=== PATIENT | male | born 1935 | race Caucasian/White ===

== ENCOUNTER → 2016-08-24 | Outpatient (CLI) | payer OTHER ==
[~2016-08-24] MED LIST: ALLO300T; ASPI81TA63; CRES5TAB; LUTEIN; OSTEOBIFLEX; THERGRAN; VITAMIN D50000 UNT; ZETI10TA
[2016-08-24 13:31] LABS: MEAN CORPUSCULAR HEMOGLOBIN 30.3 pg (27.0-33.0); MEAN CORPUSCULAR HGB CONC 33.2 g/dl (32.0-36.5); MEAN CORPUSCULAR VOLUME 91.1 fl (80.0-96.0); RED CELL DISTRIBUTION WIDTH 14.1 % (11.5-14.5)
[2016-08-24 13:50] LABS: ALBUMIN 3.4 GM/DL (3.2-5.2); ALBUMIN/GLOBULIN RATIO 1.26 (1.00-1.93); ALKALINE PHOSPHATASE 62 U/L (45-117); ALT/SGPT 27 U/L (12-78); ANION GAP 6 MEQ/L (8-16); AST/SGOT 15 U/L (15-37); BILIRUBIN,DIRECT 0.2 MG/DL (0.0-0.2); BILIRUBIN,TOTAL 0.7 MG/DL (0.2-1.0); BLOOD UREA NITROGEN 23 MG/DL (7-18); CALCIUM LEVEL 9.2 MG/DL (8.8-10.2); CARBON DIOXIDE LEVEL 30 MEQ/L (21-32); CHLORIDE LEVEL 109 MEQ/L (98-107); CHOLESTEROL LEVEL 146 MG/DL (<200); CREATININE FOR GFR 0.92 MG/DL (0.70-1.30); FERRITIN 30 NG/ML (26-388); GLOMERULAR FILTRATION RATE > 60.0 (>35); GLUCOSE, FASTING 102 MG/DL (83-110); PERCENT SATURATION 22.1 % (19.7-37.4); SODIUM LEVEL 145 MEQ/L (136-145); TOTAL IRON BINDING CAPACITY 317 UG/DL (250-450); TOTAL PROTEIN 6.1 GM/DL (6.4-8.2); TRIGLYCERIDES LEVEL 66 MG/DL (<150); URIC ACID 2.4 MG/DL (3.5-7.2)
[2016-08-24 13:55] LABS: FOLATE > 24.0 NG/ML (>5.4)
== END ==
LOC: M SMT 08:22
PROVIDERS: ATTEND Family Medicine
DX: E87.6 Hypokalemia (principal); E55.9 Vitamin D deficiency, unspecified; E61.1 Iron deficiency; E78.4 Other hyperlipidemia; M10.9 Gout, unspecified; Z12.5 Encounter for screening for malignant neoplasm of prostate
CPT/HCPCS: 36415; 80048; 80061; 80076; 82306; 82550; 82728; 82746; 83550; 84443; 84550; 85027; G0103

== ENCOUNTER → 2016-11-30 | Outpatient (CLI) | payer OTHER ==
[2016-11-30 14:38] LABS: ANION GAP 8 MEQ/L (8-16); BLOOD UREA NITROGEN 17 MG/DL (7-18); CALCIUM LEVEL 8.9 MG/DL (8.8-10.2); CARBON DIOXIDE LEVEL 27 MEQ/L (21-32); CHLORIDE LEVEL 107 MEQ/L (98-107); CREATININE FOR GFR 1.05 MG/DL (0.70-1.30); GLOMERULAR FILTRATION RATE > 60.0 (>35); GLUCOSE, FASTING 95 MG/DL (83-110); POTASSIUM SERUM 4.6 MEQ/L (3.5-5.1); SODIUM LEVEL 142 MEQ/L (136-145)
== END ==
LOC: M SMT 08:21
PROVIDERS: ATTEND Family Medicine
DX: E87.5 Hyperkalemia (principal)

== ENCOUNTER → 2017-03-06 | Outpatient (CLI) | payer OTHER ==
[2017-03-06 11:11] LABS: MEAN CORPUSCULAR HEMOGLOBIN 31.1 pg (27.0-33.0); MEAN CORPUSCULAR HGB CONC 33.8 g/dl (32.0-36.5); MEAN CORPUSCULAR VOLUME 91.9 fl (80.0-96.0); RED CELL DISTRIBUTION WIDTH 13.6 % (11.5-14.5); WHITE BLOOD COUNT 4.6 K/mm3 (4.0-10.0)
[2017-03-06 11:22] LABS: ALBUMIN 3.2 GM/DL (3.2-5.2); ALBUMIN/GLOBULIN RATIO 1.03 (1.00-1.93); ALKALINE PHOSPHATASE 53 U/L (45-117); ALT/SGPT 23 U/L (12-78); ANION GAP 8 MEQ/L (8-16); AST/SGOT 10 U/L (15-37); BILIRUBIN,TOTAL 0.7 MG/DL (0.2-1.0); BLOOD UREA NITROGEN 20 MG/DL (7-18); CALCIUM LEVEL 8.5 MG/DL (8.8-10.2); CARBON DIOXIDE LEVEL 27 MEQ/L (21-32); CHLORIDE LEVEL 108 MEQ/L (98-107); CHOLESTEROL LEVEL 166 MG/DL (<200); GLOMERULAR FILTRATION RATE > 60.0 (>35); GLUCOSE, FASTING 93 MG/DL (83-110); MAGNESIUM LEVEL 2.2 MG/DL (1.8-2.4); POTASSIUM SERUM 4.9 MEQ/L (3.5-5.1); SODIUM LEVEL 143 MEQ/L (136-145); TOTAL PROTEIN 6.3 GM/DL (6.4-8.2); TRIGLYCERIDES LEVEL 103 MG/DL (<150); URIC ACID 3.2 MG/DL (3.5-7.2)
== END ==
LOC: M SMT 08:06
PROVIDERS: ATTEND Family Medicine
DX: E78.2 Mixed hyperlipidemia (principal); R60.9 Edema, unspecified; M10.9 Gout, unspecified; Z12.5 Encounter for screening for malignant neoplasm of prostate
CPT/HCPCS: 36415; 80053; 80061; 83735; 84443; 84550; 85027; G0103

== ENCOUNTER → 2017-04-02 | Outpatient (CLI) | payer OTHER ==
[2017-04-02 13:30] LABS: MEAN CORPUSCULAR HEMOGLOBIN 30.4 pg (27.0-33.0); MEAN CORPUSCULAR HGB CONC 32.9 g/dl (32.0-36.5); MEAN CORPUSCULAR VOLUME 92.5 fl (80.0-96.0); RED CELL DISTRIBUTION WIDTH 13.6 % (11.5-14.5); WHITE BLOOD COUNT 4.3 10^3/uL (4.0-10.0)
[2017-04-02 14:00] LABS: PERCENT SATURATION 34.7 % (19.7-50.0)
== END ==
LOC: M SMT 07:54
PROVIDERS: ATTEND Family Medicine
DX: D64.9 Anemia, unspecified (principal); M10.9 Gout, unspecified; K64.4 Residual hemorrhoidal skin tags; Z12.11 Encounter for screening for malignant neoplasm of colon

== ENCOUNTER → 2017-11-09 | Outpatient (CLI) | payer OTHER ==
[2017-11-09 18:02] LABS: ANION GAP 10 MEQ/L (8-16); BLOOD UREA NITROGEN 31 MG/DL (7-18); CALCIUM LEVEL 9.1 MG/DL (8.8-10.2); CARBON DIOXIDE LEVEL 27 MEQ/L (21-32); CHLORIDE LEVEL 107 MEQ/L (98-107); GLOMERULAR FILTRATION RATE > 60.0 (>35); GLUCOSE, FASTING 93 MG/DL (70-100); POTASSIUM SERUM 4.8 MEQ/L (3.5-5.1); SODIUM LEVEL 144 MEQ/L (136-145)
== END ==
LOC: M SMT 15:36
DX: E78.1 Pure hyperglyceridemia (principal)
CPT/HCPCS: 80048

== ENCOUNTER → 2018-05-30 | Outpatient (CLI) | payer OTHER ==
[2018-05-30 14:00] LABS: HEMATOCRIT 40.6 % (42.0-52.0); HEMOGLOBIN 13.6 g/dl (13.5-17.5); MEAN CORPUSCULAR HEMOGLOBIN 30.6 pg (27.0-33.0); MEAN CORPUSCULAR HGB CONC 33.5 g/dl (32.0-36.5); MEAN CORPUSCULAR VOLUME 91.2 fl (80.0-96.0); PLATELET COUNT, AUTOMATED 148 10^3/uL (150-450); RED BLOOD COUNT 4.45 10^6/uL (4.30-6.10); RED CELL DISTRIBUTION WIDTH 13.7 % (11.5-14.5); WHITE BLOOD COUNT 4.7 10^3/uL (4.0-10.0)
[2018-05-30 14:55] LABS: ALBUMIN 3.1 GM/DL (3.2-5.2); ALBUMIN/GLOBULIN RATIO 0.97 (1.00-1.93); ALKALINE PHOSPHATASE 68 U/L (45-117); ALT/SGPT 22 U/L (12-78); ANION GAP 9 MEQ/L (8-16); AST/SGOT 20 U/L (7-37); BILIRUBIN,TOTAL 0.5 MG/DL (0.2-1.0); BLOOD UREA NITROGEN 19 MG/DL (7-18); CALCIUM LEVEL 8.2 MG/DL (8.8-10.2); CARBON DIOXIDE LEVEL 24 MEQ/L (21-32); CHLORIDE LEVEL 110 MEQ/L (98-107); CHOLESTEROL LEVEL 194 MG/DL (<200); CHOLESTEROL RISK RATIO 5.705 (<5); CREATININE FOR GFR 1.02 MG/DL (0.70-1.30); GLOMERULAR FILTRATION RATE > 60.0 (>35); GLUCOSE, FASTING 95 MG/DL (70-100); HDL CHOLESTEROL 34 MG/DL (>40); LDL CHOLESTEROL 127 MG/DL (<100); MAGNESIUM LEVEL 2.1 MG/DL (1.8-2.4); NON-HDL-C 160 MG/DL; NT-PRO BNP 59 PG/ML (<450); POTASSIUM SERUM 4.7 MEQ/L (3.5-5.1); SODIUM LEVEL 143 MEQ/L (136-145); TOTAL PROTEIN 6.3 GM/DL (6.4-8.2); TRIGLYCERIDES LEVEL 165 MG/DL (<150)
== END ==
LOC: M SMT 10:30
DX: M10.9 Gout, unspecified (principal); D64.9 Anemia, unspecified; I10 Essential (primary) hypertension; R60.9 Edema, unspecified
CPT/HCPCS: 83735

== ENCOUNTER → 2018-08-28 | Outpatient (CLI) | payer MEDICARE ==
[2018-08-28 10:24] LABS: ALBUMIN 3.4 GM/DL (3.2-5.2); BILIRUBIN,DIRECT 0.2 MG/DL (0.0-0.2); BILIRUBIN,TOTAL 0.8 MG/DL (0.2-1.0); CHOLESTEROL RISK RATIO 5.044 (<5); TOTAL PROTEIN 6.6 GM/DL (6.4-8.2)
== END ==
LOC: M SMT 08:00
PROVIDERS: ATTEND Family Medicine
DX: E78.2 Mixed hyperlipidemia (principal)

== ENCOUNTER → 2019-02-17 | Outpatient (CLI) | payer MEDICARE ==
[2019-02-17 14:09] LABS: ALBUMIN 3.1 GM/DL (3.2-5.2); BILIRUBIN,DIRECT 0.1 MG/DL (0.0-0.2); BILIRUBIN,TOTAL 0.7 MG/DL (0.2-1.0); CALCIUM LEVEL 8.9 MG/DL (8.8-10.2); CHOLESTEROL RISK RATIO 5.414 (<5); TOTAL PROTEIN 6.3 GM/DL (6.4-8.2); URIC ACID 3.2 MG/DL (3.5-7.2)
[2019-02-17 14:15] LABS: TOTAL 25(OH) VITAMIN D 42.9 NG/ML (30.0-100.0)
== END ==
LOC: M SMT 09:16
PROVIDERS: ATTEND Family Medicine
DX: E78.2 Mixed hyperlipidemia (principal); M10.9 Gout, unspecified; M81.0 Age-related osteoporosis without current pathological fracture

== ENCOUNTER → 2019-05-19 | Outpatient (CLI) | payer MEDICARE ==
[2019-05-19 14:22] LABS: ALBUMIN 3.1 GM/DL (3.2-5.2); ALT/SGPT 21 U/L (12-78); BILIRUBIN,DIRECT 0.1 MG/DL (0.0-0.2); BILIRUBIN,TOTAL 0.8 MG/DL (0.2-1.0); BLOOD UREA NITROGEN 19 MG/DL (7-18); CALCIUM LEVEL 8.6 MG/DL (8.8-10.2); CARBON DIOXIDE LEVEL 29 MEQ/L (21-32); CHLORIDE LEVEL 104 MEQ/L (98-107); CHOLESTEROL LEVEL 203 MG/DL (<200); CHOLESTEROL RISK RATIO 4.511 (<5); CPK CREATINE PHOSPHOKINASE 40 U/L (39-308); CREATININE FOR GFR 1.08 MG/DL (0.70-1.30); GLOMERULAR FILTRATION RATE > 60.0 (>35); GLUCOSE, FASTING 105 MG/DL (70-100); HDL CHOLESTEROL 45 MG/DL (>40); LDL CHOLESTEROL 136 MG/DL (<100); NON-HDL-C 158 MG/DL; NT-PRO BNP 53 PG/ML (<450); SODIUM LEVEL 140 MEQ/L (136-145); TOTAL PROTEIN 6.3 GM/DL (6.4-8.2); TRIGLYCERIDES LEVEL 111 MG/DL (<150); URIC ACID 2.6 MG/DL (3.5-7.2)
== END ==
LOC: M SMT 08:40
PROVIDERS: ATTEND Family Medicine
DX: E78.2 Mixed hyperlipidemia (principal); I10 Essential (primary) hypertension; R60.9 Edema, unspecified; M10.9 Gout, unspecified

== ENCOUNTER → 2020-02-05 | Outpatient (REF) | payer MEDICARE ==
[~2020-02-05] MED LIST changes: +ALEN70TA74 PO; -ALLO300T; +ALLO300T PO; +BACI1CAP4 PO; +COQ150CH PO; +FISH1200 PO; +FURO20TA2 PO; -LUTEIN; +LUTEIN PO; +POTA10TA17 PO; +SIMV40TA20 PO; +SM M250T PO; -THERGRAN; +THERGRAN PO; +VANC1CAP6 PO; +XARE10TA PO
== END ==
LOC: M SFHCPLAZ 11:24
PROVIDERS: ATTEND Internal Medicine Infectious Disease
DX: J02.9 Acute pharyngitis, unspecified (principal)
CPT/HCPCS: 87070; G0463

== ENCOUNTER → 2020-03-02 | Outpatient (CLI) | payer MEDICARE ==
[2020-03-02 13:17] LABS: BLOOD UREA NITROGEN 18 MG/DL (7-18); C REACTIVE PROTEIN QUANTITATIV 0.96 MG/DL (0.00-0.30); CALCIUM LEVEL 8.7 MG/DL (8.8-10.2); CARBON DIOXIDE LEVEL 29 MEQ/L (21-32); CHLORIDE LEVEL 106 MEQ/L (98-107); CHOLESTEROL LEVEL 133 MG/DL (<200); CHOLESTEROL RISK RATIO 3.093 (<5); CREATININE FOR GFR 1.13 MG/DL (0.70-1.30); GLOMERULAR FILTRATION RATE > 60.0 (>35); GLUCOSE, FASTING 78 MG/DL (70-100); HDL CHOLESTEROL 43 MG/DL (>40); LDL CHOLESTEROL 74 MG/DL (<100); MAGNESIUM LEVEL 2.5 MG/DL (1.8-2.4); NON-HDL-C 90 MG/DL; POTASSIUM SERUM 4.7 MEQ/L (3.5-5.1); SODIUM LEVEL 140 MEQ/L (136-145); TRIGLYCERIDES LEVEL 82 MG/DL (<150)
== END ==
LOC: M PLALAB 08:05
PROVIDERS: ATTEND Family Medicine
DX: E87.5 Hyperkalemia (principal); R60.9 Edema, unspecified; M10.9 Gout, unspecified; E78.2 Mixed hyperlipidemia; L03.116 Cellulitis of left lower limb; R19.7 Diarrhea, unspecified

== ENCOUNTER → 2020-03-02 | Outpatient (REF) | payer MEDICARE | LOC: M LAB REF 12:39 | PROVIDERS: ATTEND Family Medicine | DX: R19.7 Diarrhea, unspecified (principal); E78.00 Pure hypercholesterolemia, unspecified ==

== ENCOUNTER 2020-04-27 15:31 | Outpatient (CLI) | payer MEDICARE ==
[~2020-04-27] VITALS: Ht 167.6 cm; Wt 70.9 kg
[~2020-04-27 15:31] MED LIST changes: -ALEN70TA74 PO; -BACI1CAP4 PO; -COQ150CH PO; -FISH1200 PO; -FURO20TA2 PO; -POTA10TA17 PO; -SIMV40TA20 PO; -SM M250T PO; -VANC1CAP6 PO; -XARE10TA PO
[2020-04-27 15:46] VITALS: BP 118/64
[2020-04-27] MEDS ORDERED: BEZLOTOXUMAB 750 MG in NS 100 ML IV ONE (16:00)
[2020-04-27] MEDS ORDERED: FISH1200 PO (16:30)
[2020-04-27] MEDS ORDERED: ALEN70TA74 PO (16:30)
[2020-04-27] MEDS ORDERED: POTA10TA17 PO (16:30)
[2020-04-27] MEDS ORDERED: SIMV40TA20 PO (16:30)
[2020-04-27] MEDS ORDERED: XARE10TA PO (16:30)
[2020-04-27] MEDS ORDERED: FURO20TA2 PO (16:30)
[2020-04-27] MEDS ORDERED: COQ150CH PO (16:30)
[2020-04-27] MEDS ORDERED: SM M250T PO (16:30)
[2020-04-27] MEDS ORDERED: VANC1CAP6 PO (16:31)
[2020-04-27] MEDS ORDERED: BACI1CAP4 PO (16:34)
[2020-04-27 17:36] VITALS: BP 134/62
== END 2020-04-27 17:30 | disposition home or self-care (01) ==
LOC: M INFU 15:31
PROVIDERS: ATTEND Internal Medicine Infectious Disease
DX: A04.71 Enterocolitis due to Clostridium difficile, recurrent (principal)
CPT/HCPCS: 96365; J0565

== ENCOUNTER → 2020-05-14 | Outpatient (REF) | payer MEDICARE ==
[~2020-05-14] MED LIST changes: +ALEN70TA74 PO; +BACI1CAP4 PO; +COQ150CH PO; +FISH1200 PO; +FURO20TA2 PO; +POTA10TA17 PO; +SIMV40TA20 PO; +SM M250T PO; +VANC1CAP6 PO; +XARE10TA PO
== END ==
LOC: M LAB REF 18:43
PROVIDERS: ATTEND Registered Nurse
DX: R19.7 Diarrhea, unspecified (principal)

== ENCOUNTER → 2021-01-25 | Outpatient (CLI) | payer MEDICARE ==
[~2021-01-25] MED LIST changes: -ALEN70TA74 PO; +ALEN70TA82 PO
[2021-01-25 13:47] LABS: HEMATOCRIT 40.3 % (42.0-52.0); HEMOGLOBIN 13.4 g/dl (13.5-17.5); MEAN CORPUSCULAR HEMOGLOBIN 30.9 pg (27.0-33.0); MEAN CORPUSCULAR HGB CONC 33.3 g/dl (32.0-36.5); MEAN CORPUSCULAR VOLUME 92.9 fl (80.0-96.0); PLATELET COUNT, AUTOMATED 141 10^3/uL (150-450); RED BLOOD COUNT 4.34 10^6/uL (4.30-6.10); WHITE BLOOD COUNT 4.5 10^3/uL (4.0-10.0)
[2021-01-25 14:20] LABS: ALBUMIN 3.4 GM/DL (3.2-5.2); ALT/SGPT 21 U/L (12-78); BILIRUBIN,TOTAL 0.9 MG/DL (0.2-1.0); BLOOD UREA NITROGEN 18 MG/DL (7-18); CALCIUM LEVEL 8.8 MG/DL (8.8-10.2); CARBON DIOXIDE LEVEL 27 MEQ/L (21-32); CHLORIDE LEVEL 109 MEQ/L (98-107); CHOLESTEROL LEVEL 159 MG/DL (<200); CHOLESTEROL RISK RATIO 3.244 (<5); CREATININE FOR GFR 0.96 MG/DL (0.70-1.30); FOLATE > 24.0 NG/ML (>5.4); FREE T3 3.1 PG/ML (2.2-4.0); FREE T4 1.04 NG/DL (0.76-1.46); GLOMERULAR FILTRATION RATE > 60.0 (>35); GLUCOSE, FASTING 98 MG/DL (70-100); HDL CHOLESTEROL 49 MG/DL (>40); LDL CHOLESTEROL 86 MG/DL (<100); NON-HDL-C 110 MG/DL; PROSTATIC SPECIFIC AG MONITOR 3.92 NG/ML (< 4.00); SODIUM LEVEL 141 MEQ/L (136-145); TOTAL 25(OH) VITAMIN D 43.5 NG/ML (30.0-100.0); TOTAL PROTEIN 6.5 GM/DL (6.4-8.2); TRIGLYCERIDES LEVEL 118 MG/DL (<150); URIC ACID 2.9 MG/DL (3.5-7.2); VITAMIN B12 LEVEL 1133 PG/ML (247-911)
== END ==
LOC: M PLALAB 09:44
PROVIDERS: ATTEND Registered Nurse
DX: Z13.29 Encounter for screening for other suspected endocrine disorder (principal); Z12.5 Encounter for screening for malignant neoplasm of prostate; Z13.21 Encounter for screening for nutritional disorder; Z13.220 Encounter for screening for lipoid disorders

== ENCOUNTER → 2021-03-30 | Outpatient (CLI) | payer MEDICARE | LOC: M PLALAB 09:23 | PROVIDERS: ATTEND Registered Nurse | DX: M10.9 Gout, unspecified (principal) ==

== ENCOUNTER 2022-01-01 18:29 | Emergency (ER) | payer MEDICARE ==
[~2022-01-01] VITALS: Ht 167.6 cm; Wt 71.5 kg
[2022-01-01] MEDS ORDERED: ACETAMINOPHEN 500 MG TAB PO ONE (18:40)
[2022-01-01 22:29] VITALS: BP 119/57
== END 2022-01-01 22:31 | disposition home or self-care (01) ==
LOC: M ED 18:29
DX: U07.1 COVID-19 (principal); E78.5 Hyperlipidemia, unspecified; K21.9 Gastro-esophageal reflux disease without esophagitis; Z86.711 Personal history of pulmonary embolism; Z79.899 Other long term (current) drug therapy

== ENCOUNTER → 2022-02-23 | Outpatient (CLI) | payer MEDICARE ==
[~2022-02-23] MED LIST changes: +POTA-150 PO; -POTA10TA17 PO
[2022-02-23 15:34] LABS: CHOLESTEROL RISK RATIO 2.96 (<5); FREE T4 0.98 NG/DL (0.76-1.46); THYROID STIMULATING HORMONE 1.74 uIU/ML (0.358-3.740)
[2022-02-23 16:04] LABS: TOTAL 25(OH) VITAMIN D 50.7 NG/ML (30.0-100.0)
[2022-02-23 17:05] LABS: FREE T3 2.9 PG/ML (2.2-4.0)
== END ==
LOC: M PLALAB 09:48
PROVIDERS: ATTEND Registered Nurse
DX: E78.2 Mixed hyperlipidemia (principal); M10.9 Gout, unspecified; Z12.5 Encounter for screening for malignant neoplasm of prostate; E56.9 Vitamin deficiency, unspecified; Z79.899 Other long term (current) drug therapy
CPT/HCPCS: 36415; 80061; 82306; 82550; 82607; 84439; 84443; 84481; 84550; G0103

== ENCOUNTER → 2022-03-08 | Outpatient (CLI) | payer MEDICARE ==
[2022-03-08 14:10] LABS: HEMATOCRIT 40.7 % (42.0-52.0); HEMOGLOBIN 13.4 g/dl (13.5-17.5); MEAN CORPUSCULAR HEMOGLOBIN 30.2 pg (27.0-33.0); MEAN CORPUSCULAR HGB CONC 32.9 g/dl (32.0-36.5); MEAN CORPUSCULAR VOLUME 91.9 fl (80.0-96.0); PLATELET COUNT, AUTOMATED 180 10^3/uL (150-450); RED BLOOD COUNT 4.43 10^6/uL (4.30-6.10); WHITE BLOOD COUNT 4.3 10^3/uL (4.0-10.0)
[2022-03-08 14:47] LABS: PERCENT SATURATION 43.1 % (19.7-50.0)
== END ==
LOC: M PLALAB 11:41
PROVIDERS: ATTEND Registered Nurse
DX: R53.83 Other fatigue (principal)

== ENCOUNTER → 2023-02-09 | Outpatient (CLI) | payer MEDICARE ==
[2023-02-09 11:22] LABS: HEMATOCRIT 41.5 % (42.0-52.0); HEMOGLOBIN 13.7 g/dl (13.5-17.5); MEAN CORPUSCULAR HEMOGLOBIN 30.7 pg (27.0-33.0); PLATELET COUNT, AUTOMATED 165 10^3/uL (150-450); RED BLOOD COUNT 4.46 10^6/uL (4.30-6.10); WHITE BLOOD COUNT 4.2 10^3/uL (4.0-10.0)
[2023-02-09 11:36] LABS: HEMOGLOBIN A1c 5.8 % (4.0-6.0)
[2023-02-09 11:41] LABS: URIC ACID 5.1 MG/DL (3.7-9.2)
[2023-02-09 11:50] LABS: ALBUMIN 3.2 G/DL (3.2-5.2); ALKALINE PHOSPHATASE 46 U/L (46-116); ALT/SGPT 16 U/L (7.0-40); AST/SGOT < 8 U/L (<34); BILIRUBIN,TOTAL 0.9 MG/DL (0.3-1.2); BLOOD UREA NITROGEN 19 MG/DL (9-23); CALCIUM LEVEL 8.7 MG/DL (8.3-10.6); CARBON DIOXIDE LEVEL 28 MMOL/L (20-31); CHLORIDE LEVEL 107 MMOL/L (98-107); CHOLESTEROL LEVEL 174 MG/DL (<200); CHOLESTEROL RISK RATIO 3.38 (<5); CREATININE FOR GFR 0.94 MG/DL (0.70-1.30); FREE T3 3.4 PG/ML (2.3-4.2); FREE T4 0.98 NG/DL (0.89-1.76); GLOMERULAR FILTRATION RATE > 60.0 (>35); GLUCOSE, FASTING 96 MG/DL (74-106); HDL CHOLESTEROL 51.4 MG/DL (>40); LDL CHOLESTEROL 102.6 MG/DL (<100); NON-HDL-C 122.6 MG/DL; POTASSIUM SERUM 4.1 MMOL/L (3.5-5.1); PROSTATIC SPECIFIC AG MONITOR 2.23 NG/ML (< 4.00); SODIUM LEVEL 142 MMOL/L (136-145); THYROID STIMULATING HORMONE 2.117 uIU/ML (0.55-4.78); TOTAL PROTEIN 6.2 G/DL (5.7-8.2); TRIGLYCERIDES LEVEL 100 MG/DL (<150)
== END ==
LOC: M PLALAB 07:25
PROVIDERS: ATTEND Registered Nurse
DX: Z12.5 Encounter for screening for malignant neoplasm of prostate (principal); I10 Essential (primary) hypertension; M10.9 Gout, unspecified; E78.2 Mixed hyperlipidemia; N40.0 Benign prostatic hyperplasia without lower urinary tract symptoms; Z86.39 Personal history of other endocrine, nutritional and metabolic disease

== ENCOUNTER → 2023-02-26 | Outpatient (CLI) | payer MEDICARE ==
[2023-02-26 17:54] LABS: BASO % 0.3 % (0.0-1.0); EOS % 0.1 % (0.0-3.0); HEMATOCRIT 40.2 % (42.0-52.0); HEMOGLOBIN 13.4 g/dl (13.5-17.5); LYMPH # 1.1 10^3/uL (1.5-5.0); LYMPH % 9.1 % (24.0-44.0); MEAN CORPUSCULAR HEMOGLOBIN 30.5 pg (27.0-33.0); MEAN CORPUSCULAR HGB CONC 33.3 g/dl (32.0-36.5); MEAN CORPUSCULAR VOLUME 91.4 fl (80.0-96.0); MONO # 0.7 10^3/uL (0.0-0.8); MONO % 5.8 % (2.0-8.0); NEUTROPHILS # 9.8 10^3/uL (1.5-8.5); NEUTROPHILS % 84.4 % (36.0-66.0); PLATELET COUNT, AUTOMATED 151 10^3/uL (150-450); WHITE BLOOD COUNT 11.6 10^3/uL (4.0-10.0)
[2023-02-26 18:10] LABS: ERYTHROCYTE SEDIMENTATION RATE 36 mm/hr (0-20)
[2023-02-26 18:17] LABS: BLOOD UREA NITROGEN 23 MG/DL (9-23); CALCIUM LEVEL 8.7 MG/DL (8.3-10.6); CARBON DIOXIDE LEVEL 27 MMOL/L (20-31); CHLORIDE LEVEL 104 MMOL/L (98-107); CREATININE FOR GFR 1.08 MG/DL (0.70-1.30); GLOMERULAR FILTRATION RATE > 60.0 (>35); GLUCOSE, FASTING 104 MG/DL (74-106); MAGNESIUM LEVEL 2.1 MG/DL (1.8-2.4); POTASSIUM SERUM 3.7 MMOL/L (3.5-5.1); SODIUM LEVEL 138 MMOL/L (136-145)
== END ==
LOC: M RAD 16:30
PROVIDERS: ATTEND Family Medicine
DX: R50.9 Fever, unspecified (principal); R60.9 Edema, unspecified; I80.291 Phlebitis and thrombophlebitis of other deep vessels of right lower extremity; I70.0 Atherosclerosis of aorta; J98.4 Other disorders of lung

== ENCOUNTER → 2023-03-14 | Outpatient (CLI) | payer MEDICARE ==
[2023-03-14 09:58] LABS: EOS # 0.1 10^3/uL (0.0-0.5); EOS % 1.7 % (0.0-3.0); HEMOGLOBIN 12.6 g/dl (13.5-17.5); LYMPH % 23.8 % (24.0-44.0); MEAN CORPUSCULAR HEMOGLOBIN 30.3 pg (27.0-33.0); MEAN CORPUSCULAR HGB CONC 33.2 g/dl (32.0-36.5); MEAN CORPUSCULAR VOLUME 91.3 fl (80.0-96.0); MONO # 0.5 10^3/uL (0.0-0.8); MONO % 12.7 % (2.0-8.0); NEUTROPHILS # 2.4 10^3/uL (1.5-8.5); NEUTROPHILS % 60.1 % (36.0-66.0); PLATELET COUNT, AUTOMATED 191 10^3/uL (150-450); RED BLOOD COUNT 4.16 10^6/uL (4.30-6.10)
== END ==
LOC: M LAB 08:37
PROVIDERS: ATTEND Registered Nurse
DX: D72.829 Elevated white blood cell count, unspecified (principal)

== ENCOUNTER 2023-05-18 19:28 | Inpatient (IN) | payer MEDICARE ==
[~2023-05-18] VITALS: Ht 167.6 cm; Wt 74.0 kg
[2023-05-18 21:54] LABS: BASO % 0.3 % (0.0-1.0); EOS % 0.3 % (0.0-3.0); HEMATOCRIT 38.2 % (42.0-52.0); HEMOGLOBIN 12.9 g/dl (13.5-17.5); LYMPH # 0.9 10^3/uL (1.5-5.0); LYMPH % 11.8 % (24.0-44.0); MEAN CORPUSCULAR HEMOGLOBIN 30.5 pg (27.0-33.0); MEAN CORPUSCULAR HGB CONC 33.8 g/dl (32.0-36.5); MEAN CORPUSCULAR VOLUME 90.3 fl (80.0-96.0); MONO # 0.3 10^3/uL (0.0-0.8); MONO % 3.6 % (2.0-8.0); NEUTROPHILS # 6.2 10^3/uL (1.5-8.5); NEUTROPHILS % 83.9 % (36.0-66.0); PLATELET COUNT, AUTOMATED 172 10^3/uL (150-450); RED BLOOD COUNT 4.23 10^6/uL (4.30-6.10); WHITE BLOOD COUNT 7.4 10^3/uL (4.0-10.0)
[2023-05-18 22:20] LABS: ALBUMIN 3.4 G/DL (3.2-5.2); ALKALINE PHOSPHATASE 52 U/L (46-116); ALT/SGPT 18 U/L (7.0-40); AST/SGOT 17 U/L (<34); BILIRUBIN,DIRECT 0.4 MG/DL (<0.4); BILIRUBIN,TOTAL 1.4 MG/DL (0.3-1.2); BLOOD UREA NITROGEN 23 MG/DL (9-23); CALCIUM LEVEL 8.9 MG/DL (8.3-10.6); CARBON DIOXIDE LEVEL 24 MMOL/L (20-31); CHLORIDE LEVEL 104 MMOL/L (98-107); CREATININE FOR GFR 0.88 MG/DL (0.70-1.30); ERYTHROCYTE SEDIMENTATION RATE 30 mm/hr (0-20); GLOMERULAR FILTRATION RATE > 60.0 (>35); GLUCOSE, FASTING 108 MG/DL (74-106); POTASSIUM SERUM 4.2 MMOL/L (3.5-5.1); SODIUM LEVEL 137 MMOL/L (136-145); TOTAL PROTEIN 6.6 G/DL (5.7-8.2)
[2023-05-18 22:28] LABS: RSV AMPLIFICATION NEGATIVE (NEGATIVE)
[2023-05-18] MEDS ORDERED: CEFTAROLINE FOSAMIL 600 MG in D5W MINI-BAG PLUS 50 ML IV ONE (23:20)
[2023-05-19] MEDS ORDERED: ALLO300T2 PO (01:04)
[2023-05-19] MEDS ORDERED: SIMV10TA21 PO (01:04)
[2023-05-19] MEDS ORDERED: MULT-40 PO (01:04)
[2023-05-19] MEDS ORDERED: RA N1TAB PO (01:04)
[2023-05-19] MEDS ORDERED: ALIG10.5 PO (01:05)
[2023-05-19] MEDS ORDERED: FERR240T PO (01:06)
[2023-05-19] MEDS ORDERED: VITA-243 PO (01:06)
[2023-05-19] MEDS ORDERED: HOME MED LIST COMPLETE! XX SCH (01:10)
[2023-05-19] MEDS ORDERED: NORCO, ANEXSIA 5/325MG TABLET (HYDROcodone/ACETAMINOPHEN) PO PRN (02:25)
[2023-05-19] MEDS ORDERED: LR 1,000 ML IV SCH (02:25)
[2023-05-19] MEDS ORDERED: ONDANSETRON 4MG 2ML VIAL IV PRN (02:25)
[2023-05-19] MEDS ORDERED: KETOROLAC 30 MG/ML 1ML VIAL IV ONE (03:00)
[2023-05-19 05:34] VITALS: BP 105/54; TEMP 97.5; O2SAT 93
[2023-05-19] MEDS: CLINDAMYCIN 600 MG in IV 1 EA IV SCH ×2 (06:13→13:03)
[2023-05-19] MEDS ORDERED: HEPARIN SOD (PORCINE) 5000UNITS/ML 1ML VIAL/SYRINGE SC SCH (09:00)
[2023-05-19] MEDS: allopurinoL 300 MG TAB PO SCH (09:49)
[2023-05-19] MEDS: SENOKOT S TAB PO SCH ×2 (09:49→21:31)
[2023-05-19 10:00] VITALS: BP 122/59; TEMP 97.7; O2SAT 95
[2023-05-19 12:25] LABS: INR 1.25; PROTHROMBIN TIME 15.4 SECONDS (12.5-14.5)
[2023-05-19 12:26] LABS: PARTIAL THROMBOPLASTIN TIME 31.6 SECONDS (24.8-34.2)
[2023-05-19 14:00] VITALS: BP 108/54; TEMP 97.2; O2SAT 93
[2023-05-19] MEDS: cefTRIAXone SOD 1 GM in D5W MINI-BAG PLUS 50 ML IV SCH (14:47)
[2023-05-19 18:00] VITALS: BP 116/57; TEMP 97.9; O2SAT 95
[2023-05-19] MEDS: RIVAROXABAN 10MG TAB (XARELTO) PO SCH (18:03)
[2023-05-19] MEDS ORDERED: CLINDAMYCIN 150MG CAPSULE PO SCH (21:00)
[2023-05-19] MEDS ORDERED: FLUZONE HIGH DOSE(65YR UP)QUAD/PF 240MCG/0.7ML SYRINGE IM.IMMUN ONE (21:00)
[2023-05-19] MEDS: SIMVASTATIN 10 MG TAB PO SCH (21:31)
[2023-05-19 22:00] VITALS: BP 109/54; TEMP 98.8; O2SAT 92
[2023-05-20 02:00] VITALS: BP 120/60; TEMP 97.9; O2SAT 93
[2023-05-20 06:00] VITALS: BP 108/59; TEMP 98.4; O2SAT 92
[2023-05-20 06:27] LABS: BASO % 0.4 % (0.0-1.0); EOS # 0.1 10^3/uL (0.0-0.5); EOS % 0.9 % (0.0-3.0); HEMATOCRIT 33.1 % (42.0-52.0); LYMPH # 0.9 10^3/uL (1.5-5.0); LYMPH % 16.2 % (24.0-44.0); MEAN CORPUSCULAR HGB CONC 33.2 g/dl (32.0-36.5); MEAN CORPUSCULAR VOLUME 93.2 fl (80.0-96.0); MONO # 0.6 10^3/uL (0.0-0.8); MONO % 11.7 % (2.0-8.0); NEUTROPHILS # 3.7 10^3/uL (1.5-8.5); NEUTROPHILS % 70.2 % (36.0-66.0); PLATELET COUNT, AUTOMATED 134 10^3/uL (150-450); RED BLOOD COUNT 3.55 10^6/uL (4.30-6.10); WHITE BLOOD COUNT 5.3 10^3/uL (4.0-10.0)
[2023-05-20 06:51] LABS: BLOOD UREA NITROGEN 24 MG/DL (9-23); CALCIUM LEVEL 7.7 MG/DL (8.3-10.6); CARBON DIOXIDE LEVEL 24 MMOL/L (20-31); CHLORIDE LEVEL 110 MMOL/L (98-107); CREATININE FOR GFR 0.94 MG/DL (0.70-1.30); GLOMERULAR FILTRATION RATE > 60.0 (>35); GLUCOSE, FASTING 109 MG/DL (74-106); POTASSIUM SERUM 4.2 MMOL/L (3.5-5.1); SODIUM LEVEL 141 MMOL/L (136-145)
[2023-05-20] MEDS: SENOKOT S TAB PO SCH ×2 (08:41→20:59)
[2023-05-20] MEDS: allopurinoL 300 MG TAB PO SCH (08:41)
[2023-05-20] MEDS: FUROSEMIDE 20 MG TAB PO SCH (08:46)
[2023-05-20 10:00] VITALS: BP 111/55; TEMP 97.3; O2SAT 93
[2023-05-20] MEDS: cefTRIAXone SOD 1 GM in D5W MINI-BAG PLUS 50 ML IV SCH (13:59)
[2023-05-20 14:00] VITALS: BP 107/56; TEMP 97.7; O2SAT 93
[2023-05-20 15:56] LABS: PROCALCITONIN <0.04 ng/ml
[2023-05-20 18:00] VITALS: BP 129/69; TEMP 98.1; O2SAT 96
[2023-05-20] MEDS: RIVAROXABAN 10MG TAB (XARELTO) PO SCH (18:23)
[2023-05-20] MEDS: SIMVASTATIN 10 MG TAB PO SCH (20:59)
[2023-05-20 22:00] VITALS: BP 147/70; TEMP 98.2; O2SAT 94
[2023-05-21 02:00] VITALS: BP 119/60; TEMP 97.9; O2SAT 94
[2023-05-21 06:00] VITALS: BP 135/72; TEMP 97.7; O2SAT 95
[2023-05-21 06:40] LABS: BASO % 0.4 % (0.0-1.0); EOS # 0.1 10^3/uL (0.0-0.5); EOS % 2.1 % (0.0-3.0); HEMATOCRIT 34.3 % (42.0-52.0); HEMOGLOBIN 11.6 g/dl (13.5-17.5); LYMPH # 0.8 10^3/uL (1.5-5.0); LYMPH % 17.2 % (24.0-44.0); MEAN CORPUSCULAR HEMOGLOBIN 30.9 pg (27.0-33.0); MEAN CORPUSCULAR HGB CONC 33.8 g/dl (32.0-36.5); MEAN CORPUSCULAR VOLUME 91.2 fl (80.0-96.0); MONO # 0.6 10^3/uL (0.0-0.8); MONO % 12.1 % (2.0-8.0); NEUTROPHILS # 3.2 10^3/uL (1.5-8.5); NEUTROPHILS % 67.6 % (36.0-66.0); PLATELET COUNT, AUTOMATED 139 10^3/uL (150-450); RED BLOOD COUNT 3.76 10^6/uL (4.30-6.10); WHITE BLOOD COUNT 4.8 10^3/uL (4.0-10.0)
[2023-05-21 06:46] LABS: ERYTHROCYTE SEDIMENTATION RATE 47 mm/hr (0-20)
[2023-05-21 07:08] LABS: BLOOD UREA NITROGEN 16 MG/DL (9-23); CALCIUM LEVEL 7.9 MG/DL (8.3-10.6); CARBON DIOXIDE LEVEL 24 MMOL/L (20-31); CHLORIDE LEVEL 108 MMOL/L (98-107); GLOMERULAR FILTRATION RATE > 60.0 (>35); GLUCOSE, FASTING 97 MG/DL (74-106); SODIUM LEVEL 140 MMOL/L (136-145)
[2023-05-21 07:21] LABS: PROCALCITONIN <0.04 ng/ml
[2023-05-21] MEDS: FUROSEMIDE 20 MG TAB PO SCH (08:38)
[2023-05-21] MEDS: SENOKOT S TAB PO SCH (08:38)
[2023-05-21] MEDS: allopurinoL 300 MG TAB PO SCH (08:38)
[2023-05-21] MEDS ORDERED: ACET-897 PO ×2 (09:50→11:27)
[2023-05-21 10:28] VITALS: BP 112/56; TEMP 97.5; O2SAT 94
== END 2023-05-21 13:35 | disposition home or self-care (01) | DRG 603 ==
LOC: M ED 19:28 → M ED INP 05-19 02:21 → ENRESERV 05-19 04:15 → M MSPAV 05-19 05:32
PROVIDERS: ADMIT Internal Medicine; ATTEND Student in an Organized Health Care Education/Training Program
DX: L03.115 Cellulitis of right lower limb (principal); D50.9 Iron deficiency anemia, unspecified; E78.5 Hyperlipidemia, unspecified; M10.9 Gout, unspecified; Z79.899 Other long term (current) drug therapy; E78.00 Pure hypercholesterolemia, unspecified

== ENCOUNTER 2023-05-21 12:27 | Outpatient (CLI) | payer MEDICARE ==
[~2023-05-21 12:27] MED LIST changes: +ACET-897 PO; +ALIG10.5 PO; +ALLO300T2 PO; +FERR240T PO; +MULT-40 PO; +RA N1TAB PO; +SIMV10TA21 PO; +VITA-243 PO
[2023-05-21] MEDS ORDERED: DALBAVANCIN 1,500 MG in D5W 250 ML IV ONE (13:00)
== END 2023-05-21 13:29 ==
LOC: M OPCLI4PV 12:27
PROVIDERS: ATTEND Student in an Organized Health Care Education/Training Program
DX: L03.115 Cellulitis of right lower limb (principal)
CPT/HCPCS: 96365; J0875

== ENCOUNTER → 2023-06-11 | Outpatient (CLI) | payer MEDICARE ==
[2023-06-11 14:06] LABS: BASO % 0.8 % (0.0-1.0); EOS # 0.1 10^3/uL (0.0-0.5); EOS % 2.3 % (0.0-3.0); HEMATOCRIT 41.8 % (42.0-52.0); HEMOGLOBIN 13.5 g/dl (13.5-17.5); LYMPH # 1.3 10^3/uL (1.5-5.0); LYMPH % 25.2 % (24.0-44.0); MEAN CORPUSCULAR HEMOGLOBIN 29.9 pg (27.0-33.0); MEAN CORPUSCULAR HGB CONC 32.3 g/dl (32.0-36.5); MEAN CORPUSCULAR VOLUME 92.5 fl (80.0-96.0); MONO # 0.6 10^3/uL (0.0-0.8); MONO % 11.7 % (2.0-8.0); NEUTROPHILS % 59.4 % (36.0-66.0); PLATELET COUNT, AUTOMATED 185 10^3/uL (150-450); RED BLOOD COUNT 4.52 10^6/uL (4.30-6.10); WHITE BLOOD COUNT 5.1 10^3/uL (4.0-10.0)
[2023-06-11 14:07] LABS: C REACTIVE PROTEIN QUANTITATIV < 0.40 MG/DL (<1.0)
[2023-06-11 14:13] LABS: ANTI-STREPTOLYSIN O QUANT 59.2 IU/ML (<195)
[2023-06-11 14:15] LABS: ERYTHROCYTE SEDIMENTATION RATE 25 mm/hr (0-20)
== END ==
LOC: M PLALAB 10:25
PROVIDERS: ATTEND Internal Medicine Infectious Disease
DX: L03.119 Cellulitis of unspecified part of limb (principal)

== ENCOUNTER → 2024-01-30 | Outpatient (RCR) | payer MEDICARE | LOC: M PT 01-22 11:34 | PROVIDERS: ATTEND Internal Medicine Infectious Disease | DX: I89.0 Lymphedema, not elsewhere classified (principal); L03.115 Cellulitis of right lower limb ==

== ENCOUNTER → 2024-02-20 | Outpatient (CLI) | payer MEDICARE ==
[2024-02-20 08:29] LABS: HEMATOCRIT 41.2 % (42.0-52.0); HEMOGLOBIN 13.7 g/dl (13.5-17.5); MEAN CORPUSCULAR HEMOGLOBIN 30.7 pg (27.0-33.0); MEAN CORPUSCULAR HGB CONC 33.3 g/dl (32.0-36.5); MEAN CORPUSCULAR VOLUME 92.4 fl (80.0-96.0); PLATELET COUNT, AUTOMATED 162 10^3/uL (150-450); RED BLOOD COUNT 4.46 10^6/uL (4.30-6.10); WHITE BLOOD COUNT 4.1 10^3/uL (4.0-10.0)
[2024-02-20 08:48] LABS: PROSTATIC SPECIFIC AG MONITOR 2.54 NG/ML (< 4.00); URIC ACID 4.6 MG/DL (3.7-9.2)
[2024-02-20 08:50] LABS: HEMOGLOBIN A1c 5.4 % (4.0-6.0)
[2024-02-20 08:51] LABS: ALBUMIN 3.2 G/DL (3.2-5.2); ALKALINE PHOSPHATASE 51 U/L (46-116); ALT/SGPT 26 U/L (7.0-40); AST/SGOT 21 U/L (<34); BLOOD UREA NITROGEN 21 MG/DL (9-23); CALCIUM LEVEL 8.8 MG/DL (8.3-10.6); CARBON DIOXIDE LEVEL 27 MMOL/L (20-31); CHLORIDE LEVEL 109 MMOL/L (98-107); CHOLESTEROL LEVEL 157 MG/DL (<200); CHOLESTEROL RISK RATIO 3.48 (<5); CREATININE FOR GFR 0.92 MG/DL (0.70-1.30); GLOMERULAR FILTRATION RATE > 60.0 (>35); GLUCOSE, FASTING 98 MG/DL (74-106); HDL CHOLESTEROL 45.1 MG/DL (>40); LDL CHOLESTEROL 95.5 MG/DL (<100); MAGNESIUM LEVEL 2.2 MG/DL (1.8-2.4); NON-HDL-C 111.9 MG/DL; POTASSIUM SERUM 4.1 MMOL/L (3.5-5.1); SODIUM LEVEL 141 MMOL/L (136-145); TOTAL PROTEIN 6.2 G/DL (5.7-8.2); TRIGLYCERIDES LEVEL 82 MG/DL (<150)
[2024-02-20 08:52] LABS: TOTAL 25(OH) VITAMIN D 50.4 NG/ML (20.0-100.0)
== END ==
LOC: M LAB 07:23
PROVIDERS: ATTEND Registered Nurse
DX: M10.9 Gout, unspecified (principal); Z12.5 Encounter for screening for malignant neoplasm of prostate; E78.2 Mixed hyperlipidemia; M81.0 Age-related osteoporosis without current pathological fracture; Z79.899 Other long term (current) drug therapy

== ENCOUNTER 2024-02-26 13:09 | Outpatient (RCR) | payer MEDICARE | END 2024-03-01 | LOC: M PT 13:09 | PROVIDERS: ATTEND Internal Medicine Infectious Disease | DX: I89.0 Lymphedema, not elsewhere classified (principal) ==

== ENCOUNTER 2024-03-21 12:22 | Outpatient (RCR) | payer MEDICARE | END 2024-03-31 | LOC: M PT 12:22 | PROVIDERS: ATTEND Internal Medicine Infectious Disease | DX: I89.0 Lymphedema, not elsewhere classified (principal) ==

== ENCOUNTER 2024-09-18 12:33 | Outpatient (RCR) | payer MEDICARE | END 2024-09-29 | LOC: M PT 12:33 | PROVIDERS: ATTEND Internal Medicine Infectious Disease | DX: I89.0 Lymphedema, not elsewhere classified (principal); L03.115 Cellulitis of right lower limb ==

== ENCOUNTER → 2024-11-12 | Outpatient (CLI) | payer MEDICARE ==
[2024-11-12 08:19] LABS: HEMATOCRIT 39.5 % (42.0-52.0); HEMOGLOBIN 13.2 g/dl (13.5-17.5); MEAN CORPUSCULAR HEMOGLOBIN 30.7 pg (27.0-33.0); MEAN CORPUSCULAR HGB CONC 33.4 g/dl (32.0-36.5); MEAN CORPUSCULAR VOLUME 91.9 fl (80.0-96.0); PLATELET COUNT, AUTOMATED 165 10^3/uL (150-450); WHITE BLOOD COUNT 4.8 10^3/uL (4.0-10.0)
[2024-11-12 08:24] LABS: APPEARANCE, URINE CLEAR (CLEAR); BACTERIA, URINE AUTO NEGATIVE (NEGATIVE); BILIRUBIN, URINE AUTO NEGATIVE (NEGATIVE); BLOOD, URINE BLOOD NEGATIVE (NEGATIVE); COLOR, URINE YELLOW (YELLOW); GLUCOSE, URINE (UA) AUTO NEGATIVE (NEGATIVE); KETONE, URINE AUTO NEGATIVE (NEGATIVE); LEUKOCYTE ESTERASE, URINE AUTO NEGATIVE (NEGATIVE); MUCUS, URINE SMALL (NEGATIVE); NITRITE, URINE AUTO NEGATIVE (NEGATIVE); PROTEIN, URINE AUTO NEGATIVE (NEGATIVE); RBC, URINE AUTO 1 /HPF (0-3); SPECIFIC GRAVITY URINE AUTO 1.018 (1.002-1.035); SQUAMOUS EPITHELIAL CELL UR AU 0 /HPF (0-6); UROBILINOGEN, URINE AUTO 0.2 mg/dL (0.0-2.0); WBC, URINE AUTO 1 /HPF (0-3)
[2024-11-12 08:45] LABS: PROSTATIC SPECIFIC AG MONITOR 2.81 NG/ML (< 4.00)
[2024-11-12 08:46] LABS: ALBUMIN 3.4 G/DL (3.2-5.2); BILIRUBIN,TOTAL 1.1 MG/DL (0.3-1.2); CALCIUM LEVEL 9.1 MG/DL (8.3-10.6); CHOLESTEROL RISK RATIO 3.13 (<5); CREATININE FOR GFR 1.02 MG/DL (0.70-1.30); GLOMERULAR FILTRATION RATE 70.7 (>35); HDL CHOLESTEROL 53.6 MG/DL (>40); LDL CHOLESTEROL 95.6 MG/DL (<100); MAGNESIUM LEVEL 2.2 MG/DL (1.8-2.4); NON-HDL-C 114.4 MG/DL; POTASSIUM SERUM 4.3 MMOL/L (3.5-5.1); TOTAL PROTEIN 6.4 G/DL (5.7-8.2)
[2024-11-12 08:48] LABS: CREATININE, URINE 153.7 MG/DL; MALB URINE SIEMENS < 3.0 MG/L
[2024-11-12 08:50] LABS: URIC ACID 4.5 MG/DL (3.7-9.2)
== END ==
LOC: M LAB 06:54
PROVIDERS: ATTEND Registered Nurse
DX: M10.9 Gout, unspecified (principal); I10 Essential (primary) hypertension; Z12.5 Encounter for screening for malignant neoplasm of prostate; E78.2 Mixed hyperlipidemia; K21.9 Gastro-esophageal reflux disease without esophagitis; Z79.899 Other long term (current) drug therapy

== ENCOUNTER → 2025-04-07 | Outpatient (CLI) | payer MEDICARE | LOC: M RAD 08:57 | PROVIDERS: ATTEND Registered Nurse | DX: M62.830 Muscle spasm of back (principal) ==